=== PATIENT | male | born 1965 | race African-American/Black ===

== ENCOUNTER 2019-10-07 18:05 | Emergency (ER) | payer SELFPAY ==
[~2019-10-07] VITALS: Ht 177.8 cm; Wt 85.0 kg
[2019-10-07 18:09] VITALS: BP 135/78
[2019-10-07] MEDS ORDERED: PHEN-434 PO (18:12)
[2019-10-07] MEDS ORDERED: PHENYTOIN SODIUM EXTENDED 100MG CAPSULE PO ONE (21:30)
== END 2019-10-07 22:00 | disposition home or self-care (01) ==
LOC: ER 18:05
DX: G40.909 Epilepsy, unspecified, not intractable, without status epilepticus (principal); S01.01XA Laceration without foreign body of scalp, initial encounter; W01.198A Fall on same level from slipping, tripping and stumbling with subsequent striking against other object, initial encounter; Y93.89 Activity, other specified; Y92.89 Other specified places as the place of occurrence of the external cause
CPT/HCPCS: 99284